=== PATIENT | female | born 1985 | race Caucasian/White ===

== ENCOUNTER 2017-10-07 18:14 | Emergency (ER) | payer BC ==
[2017-10-07 18:49] LABS: URINE HCG POC HCG NEGATIVE (Negative)
[2017-10-07] MEDS ORDERED: IV NORMAL SALINE 1000ML BAG 1,000 ML IV ×2 (19:00)
[2017-10-07 19:01] LABS: BASO % 0 % (0-3); EOS % 0 % (0-3); HEMATOCRIT 39.7 % (36.0-47.0); HEMOGLOBIN 13.3 g/dL (12.0-15.5); LYMPH # 0.6 x10^3/uL (1.0-4.8); LYMPH % 6 % (24-48); MEAN CORPUSCULAR HEMOGLOBIN 30 pg (25-35); MEAN CORPUSCULAR HGB CONC 34 g/dL (31-37); MEAN CORPUSCULAR VOLUME 89 fL (79-100); MONO # 0.4 x10^3/uL (0.0-1.1); MONO % 4 % (0-9); NEUT # 10.1 x10^3uL (1.8-7.7); NEUT % 90 % (31-73); PLATELET COUNT 334 x10^3/uL (140-400); RED BLOOD COUNT 4.44 x10^6/uL (3.50-5.40); RED CELL DISTRIBUTION WIDTH 13.2 % (11.5-14.5); WHITE BLOOD COUNT 11.3 x10^3/uL (4.0-11.0)
[2017-10-07 19:04] LABS: BILIRUBIN,URINE NEGATIVE (NEG); CLARITY,URINE CLEAR; COLOR,URINE YELLOW; GLUCOSE,URINE NEGATIVE (NEG); NITRITE,URINE NEGATIVE (NEG); PH,URINE 6.5; PROTEIN,URINE 30 mg/dL (NEG-TRACE); UROBILINOGEN,URINE 0.2 mg/dL (0.2 mg/dL)
[2017-10-07] MEDS: IV NORMAL SALINE 1000ML BAG 1,000 ML IV ×2 (19:06)
[2017-10-07 19:07] LABS: ADD MAN DIFF? YES
[2017-10-07] MEDS: HYOSCYAMINE 0.125 MG TAB.RAPDIS PO ×4 (19:07→21:20)
[2017-10-07] MEDS: KETOROLAC 30 MG/ML INJ. IV ×2 (19:07)
[2017-10-07] MEDS: ONDANSETRON PF 4 MG/2 ML VIAL. IV ×2 (19:07)
[2017-10-07] MEDS ORDERED: IOHEXOL 300 MG/ML 100ML VIAL. IV ×2 (19:15)
[2017-10-07 19:18] LABS: ALBUMIN 3.6 g/dL (3.4-5.0); ALK PHOS 64 U/L (46-116); ALT (SGPT) 17 U/L (14-59); AST (SGOT) 13 U/L (15-37); BLOOD UREA NITROGEN 10 mg/dL (7-20); BUN/CREATININE RATIO 14 (6-20); CALCIUM 8.2 mg/dL (8.5-10.1); CARBON DIOXIDE 25 mmol/L (21-32); CREATININE 0.7 mg/dL (0.6-1.0); GFR 95.8; GLUCOSE 117 mg/dL (70-99); LIPASE 136 U/L (73-393); TOTAL BILIRUBIN 0.5 mg/dL (0.2-1.0); TOTAL PROTEIN 7.3 g/dL (6.4-8.2)
[2017-10-07 19:26] LABS: BACTERIA,URINE 0 /HPF (0-FEW); SQUAMOUS EPITHELIAL CELL,UR MOD /LPF; WBC,URINE 0 /HPF (0-4)
[2017-10-07 19:35] LABS: ANION GAP 11 (6-14); CHLORIDE 104 mmol/L (98-107); POTASSIUM 3.2 mmol/L (3.5-5.1); SODIUM 140 mmol/L (136-145)
[2017-10-07 19:41] LABS: % BANDS 3 % (0-9); % LYMPHS 8 % (24-48); % MONOS 3 % (0-10); % SEGS 86 % (35-66)
[2017-10-07 19:42] LABS: PLT ESTIMATE ADEQUATE (ADEQUATE)
== END 2017-10-07 21:31 | disposition left against medical advice (07) ==
LOC: ER 18:14
DX: R10.13 Epigastric pain (principal); B34.9 Viral infection, unspecified; Z88.2 Allergy status to sulfonamides
CPT/HCPCS: 36415; 74177; 80053; 81001; 81025; 83690; 85007; 85025; 96361; 96374; 96375; 99285-25; J1885; J2405; J7030